=== PATIENT | male | born 1990 | race American Indian/Alaskan Native ===

== ENCOUNTER 2017-03-23 15:52 | Emergency (ER) | payer SELFPAY ==
[2017-03-23 16:55] VITALS: BP 127/75
[2017-03-23] MEDS ORDERED: ROCEPHIN IM ONE (17:11)
[2017-03-23] MEDS ORDERED: ZITHROMAX PO ONE (17:11)
[2017-03-23] MEDS ORDERED: XYLOCAINE 1% MPF 5 mL INFILTRATI ONE (17:11)
--- NOTE | 2017-03-23 17:16 | Emergency Department Report ---
ED Male HPI - General Chief complaint: Urogenital-Male Stated complaint: GROIN DISCOMFORT Time Seen by Provider: 03/23/17 17:07 Source: patient Mode of arrival: Ambulatory Limitations: No Limitations - History of Present Illness Initial comments: pt is a 27 y/o aam who present for testicular pain and open lesion s/p oral sex last weak sore healed however pain and dysuria remain , symptoms are exacerbateb by voiding symptoms are relieved by nothing , pt has advised partner to seek treatment MD Complaint: dysuria Onset/Timin -: days(s) Location: penis Radiation: none Severity: moderate Severity scale (0 -10): 4 Quality: burning Consistency: intermittent Improves with: none Worsens with: urination, palpation new sexual partner swelling, dysuria. denies: mass, rash, urinary retention, blood in urine, fever , nausea/vomiting, incontinence - Related Data Sexually active: Yes Previous Rx's Medication Instructions Recorded Last Taken Type Doxycycline [Vibramycin CAP] 100 mg PO Q12HR #20 capsule 03/23/17 Unknown Rx Allergies Allergy/AdvReac Type Severity Reaction Status Date / Time No Known Allergies Allergy Unverified 03/23/17 16:55 ED Review of Systems ROS: Stated complaint: GROIN DISCOMFORT Other details as noted in HPI Constitutional: denies: chills, fever Eyes: denies: eye pain, eye discharge, vision change ENT: denies: ear pain, throat pain Respiratory: denies: cough, shortness of breath, wheezing Cardiovascular: denies: chest pain, palpitations Endocrine: no symptoms reported Gastrointestinal: denies: abdominal pain, nausea, diarrhea Genitourinary: urgency, dysuria, frequency. denies: hematuria, testicular pain , testicular mass Musculoskeletal: denies: back pain, joint swelling, arthralgia Skin: denies: rash, lesions Neurological: denies: headache, weakness, paresthesias Psychiatric: denies: anxiety, depression Hematological/Lymphatic: denies: easy bleeding, easy bruising ED Past Medical Hx - Past Medical History Previous Medical History?: No - Surgical History Past Surgical History?: No - Social History Smoking Status: Never Smoker Substance Use Type: Alcohol - Medications Home Medications: Home Medications Medication Instructions Recorded Confirmed Last Taken Type Doxycycline [Vibramycin CAP] 100 mg PO Q12HR #20 capsule 03/23/17 Unknown Rx ED Physical Exam - General Limitations: No Limitations General appearance: alert, in no apparent distress - Head Head exam: Present: atraumatic, normocephalic - Eye Eye exam: Present: normal appearance - ENT ENT exam: Present: mucous membranes moist - Neck Neck exam: Present: normal inspection - Respiratory Respiratory exam: Present: normal lung sounds bilaterally. Absent: respiratory distress - Cardiovascular Cardiovascular Exam: Present: regular rate, normal rhythm. Absent: systolic murmur, diastolic murmur, rubs, gallop - GI/Abdominal GI/Abdominal exam: Present: soft, normal bowel sounds - Rectal Rectal exam: Present: deferred - exam: Absent: testicular tenderness, urethral discharge, scrotal swelling, vertical testicular lie, circumcision External exam: Present: swelling, other (right eipididymis tenderness and swelling ). Absent: lesions, lacerations, ecchymosis, bleeding - Extremities Exam Extremities exam: Present: normal inspection, full ROM - Back Exam Back exam: Present: normal inspection. Absent: CVA tenderness (R), CVA tenderness (L) - Neurological Exam Neurological exam: Present: alert, oriented X3 - Psychiatric Psychiatric exam: Present: normal affect, normal mood - Skin Skin exam: Present: warm, dry, intact, normal color. Absent: rash ED Course Vital Signs 03/23/17 16:48 Temperature 98.5 F Pulse Rate 78 Respiratory 20 Rate Blood Pressure 127/75 O2 Sat by Pulse 99 Oximetry ED Medical Decision Making - Medical Decision Making pt is a 27 y/o male who reports penile sore 1 days after oral sex painful healed howevever penile pain swelling dysuria frequency , exam: no rash no lesion, no open sores at this time, no scrotal swelling right epipidymis pain to palpation, given symptoms will tx for std exposure, rocephin , azithromycin , and doxycycline po pt will follow up with health department for hiv screening and follow up pt verbalized agreement and understanding with discharge plan. Critical care attestation.: If time is entered above; I have spent that time in minutes in the direct care of this critically ill patient, excluding procedure time. ED Disposition Clinical Impression: Exposure to STD, Epididymitis Disposition: DC-01 TO HOME OR SELFCARE Is pt being admited?: No Does the pt Need Aspirin: No Condition: Good Instructions: Epididymitis (ED) Additional Instructions: follow up with your health department for hiv screening Prescriptions: Doxycycline [Vibramycin CAP] 100 mg PO Q12HR #20 capsule Referrals: PRIMARY CARE, [Primary Care Provider] - 3-5 Days Forms: STI Treatment and Prevention, Work/School Release Form(ED) Time of Disposition: 17:23
== END 2017-03-23 17:31 | disposition home or self-care (01) ==
LOC: ED 15:52
DX: N45.1 Epididymitis (principal); Z20.2 Contact with and (suspected) exposure to infections with a predominantly sexual mode of transmission
CPT/HCPCS: 96372; 99282; J0696

== ENCOUNTER 2021-03-29 11:43 | Emergency (ER) | payer SELFPAY ==
[2021-03-29 13:14] VITALS: BP 130/77
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
== END 2021-03-29 16:37 | disposition home or self-care (01) ==
LOC: ED 11:43
DX: A60.01 Herpesviral infection of penis (principal); H00.019 Hordeolum externum unspecified eye, unspecified eyelid
CPT/HCPCS: 99281